=== PATIENT | female | born 1940 | race Caucasian/White ===

== ENCOUNTER 2021-07-02 06:00 | Outpatient (RCR) | payer MEDICARE, OTHER, SELFPAY | END 2021-07-16 23:59 | disposition home or self-care (01) | LOC: GPT 06:00 | PROVIDERS: PCP Orthopaedic Surgery; Referring Provider Orthopaedic Surgery; Visit Provider Orthopaedic Surgery | DX: S72.143D Displaced intertrochanteric fracture of unspecified femur, subsequent encounter for closed fracture with routine healing (principal); X58.XXXD Exposure to other specified factors, subsequent encounter | CPT/HCPCS: 97110; 97112; 97116; 97162; 97530 ==

== ENCOUNTER 2021-07-17 06:00 | Outpatient (RCR) | payer MEDICARE, OTHER, SELFPAY | END 2021-08-14 23:59 | disposition home or self-care (01) | LOC: GPT 06:00 | PROVIDERS: PCP Orthopaedic Surgery; Visit Provider Orthopaedic Surgery | DX: S72.143D Displaced intertrochanteric fracture of unspecified femur, subsequent encounter for closed fracture with routine healing (principal); X58.XXXD Exposure to other specified factors, subsequent encounter | CPT/HCPCS: 97110; 97116 ==

== ENCOUNTER → 2023-08-14 16:02 | Outpatient (BNVA) | payer MEDICARE, SELFPAY | PROVIDERS: Visit Provider Nurse Practitioner Family | DX: R30.0 Dysuria (principal) | CPT/HCPCS: 81000 ==